=== PATIENT | female | born 2005 | race Caucasian/White ===

== ENCOUNTER 2025-06-04 12:46 | Emergency (ER) | payer OTHER ==
[~2025-06-04] VITALS: Ht 162.6 cm; Wt 81.3 kg
[2025-06-04 12:50] VITALS: BP 159/87; TEMP 98.7; O2SAT 100
[2025-06-04] MEDS ORDERED: CONC36TA4 PO (12:54)
[2025-06-04] MEDS ORDERED: FLON27.5 NARES (12:54)
[2025-06-04] MEDS ORDERED: NOXI1TAB PO (12:54)
[2025-06-04] MEDS ORDERED: METH-1102 PO (12:54)
[2025-06-04] MEDS ORDERED: CLAR5TAB11 PO (12:54)
[2025-06-04 13:18] LABS: BASO # 0.1 10^3/uL (0.0-0.2); BASO % 0.6 % (0.0-1.0); EOS # 0.2 10^3/uL (0.0-0.5); EOS % 1.3 % (0.0-3.0); LYMPH # 3.1 10^3/uL (1.5-5.0); LYMPH % 27.2 % (24.0-44.0); MONO # 0.8 10^3/uL (0.0-0.8); MONO % 6.9 % (2.0-8.0); NEUTROPHILS # 7.2 10^3/uL (1.5-8.5); NEUTROPHILS % 63.7 % (36.0-66.0); PLATELET COUNT, AUTOMATED 503 10^3/uL (150-450)
[2025-06-04 13:32] LABS: KETONE, URINE AUTO RFX NEGATIVE (NEGATIVE); LEUKOCYTE ESTERASE UR AUTO RFX NEGATIVE (NEGATIVE); MUCUS, URINE RFX SMALL (NEGATIVE); NITRITE, URINE AUTO RFX NEGATIVE (NEGATIVE); RBC, URINE AUTO RFX 1 /HPF (0-3); SQUAM EPITHELIAL CELL UR AURFX 0 /HPF (0-6); WBC, URINE AUTO RFX 9 /HPF (0-3)
[2025-06-04 13:39] LABS: ALT/SGPT 41 U/L (7.0-40); AST/SGOT 30 U/L (<34); CALCIUM LEVEL 9.3 MG/DL (8.5-10.1); CARBON DIOXIDE LEVEL 24 MMOL/L (20-31); CHLORIDE LEVEL 106 MMOL/L (98-107); CREATININE FOR GFR 0.72 MG/DL (0.55-1.30); GLOMERULAR FILTRATION RATE > 90.0 (>60); POTASSIUM SERUM 4.0 MMOL/L (3.5-5.1); SODIUM LEVEL 140 MMOL/L (136-145)
[2025-06-04 13:45] LABS: HCG, SERUM QUALITATIVE NEGATIVE (NEGATIVE)
[2025-06-04] MEDS ORDERED: CIPR-249 PO (14:44)
[2025-06-04] MEDS ORDERED: PYRI1TAB5 PO (14:44)
== END 2025-06-04 14:57 | disposition home or self-care (01) ==
LOC: M ED 12:46
DX: N39.0 Urinary tract infection, site not specified (principal); F90.9 Attention-deficit hyperactivity disorder, unspecified type; Z88.2 Allergy status to sulfonamides; Z79.899 Other long term (current) drug therapy; Z79.2 Long term (current) use of antibiotics